=== PATIENT | male | born 1935 | race Caucasian/White ===

== ENCOUNTER → 2016-08-11 | Outpatient (CLI) | payer BC, MEDICARE ==
[2016-08-11 14:15] LABS: Basophils % (A) 0 %; CH 30.9; CHCM 33.1; Eosinophils # (A) 0.2 k/uL (0-0.7); Eosinophils % (A) 3 %; HCT 38.5 % (39.0-53.0); HDW 2.17; HGB 12.6 gm/dL (13.0-17.5); Luc % (Auto) 3; Lymphocytes # (A) 1.5 k/uL (1.0-4.8); Lymphocytes % (A) 19 %; MCH 30.6 pg (25.0-35.0); MCHC 32.7 g/dL (31.0-37.0); MCV 93.5 fL (80.0-100.0); Mean Platelet Volume 6.4; Monocytes # (A) 0.4 k/uL (0-1.0); Monocytes % (A) 4 %; Neutrophils # (A) 5.7 k/uL (1.3-7.7); Neutrophils % (A) 71 %; RBC 4.12 m/uL (4.30-5.90); RDW 12.8 % (11.5-15.5); WBC (Perox) 8.15
[2016-08-11 14:37] LABS: ALT 38 U/L (21-72); AST 28 U/L (17-59); Alkaline Phosphatase 57 U/L (38-126); Anion Gap 12 mmol/L; Blood Urea Nitrogen 43 mg/dL (9-20); C Reactive Protein 21.3 mg/L (<10.0); Calcium 9.2 mg/dL (8.4-10.2); Carbon Dioxide 30 mmol/L (22-30); Chloride 98 mmol/L (98-107); Glucose 71 mg/dL (74-99); Non-African American GFR(MDRD) 53 (>60 ml/min/1.73 sqM); Rheumatoid Factor, Qnt <9 IU/mL (<12); Sodium 140 mmol/L (137-145); Total Bilirubin 0.5 mg/dL (0.2-1.3); Total Protein 7.1 g/dL (6.3-8.2)
[2016-08-11 14:42] LABS: Potassium 3.6 mmol/L (3.5-5.1)
[2016-08-11 15:20] LABS: Vitamin B12 289 pg/mL
[2016-08-11 16:04] LABS: Erythrocyte Sedimentation Rate 28 mm/hr (0-15)
[2016-08-11 19:26] LABS: Treponemal Ab Non-Reactive (Non-Reactive)
[2016-08-11 19:42] LABS: Hemoglobin A1C 5.2 % (4.2-6.1)
[2016-08-11 20:08] LABS: ANA w/Reflex to Titer NEGATIVE (NEGATIVE)
== END | disposition home or self-care (01) ==
LOC: LABWHC1 13:35
PROVIDERS: ATTEND Family Medicine
DX: R41.3 Other amnesia (principal); E03.9 Hypothyroidism, unspecified; M06.9 Rheumatoid arthritis, unspecified; E11.9 Type 2 diabetes mellitus without complications
CPT/HCPCS: 36415; 80053; 82140; 82607; 83036; 84439; 84443; 85025; 85652; 86038; 86140; 86431; 86780

== ENCOUNTER → 2016-08-29 | Outpatient (CLI) | payer MEDICARE ==
[2016-08-29 10:31] LABS: Blood Urea Nitrogen 39 mg/dL (9-20); Non-African American GFR(MDRD) 59 (>60 ml/min/1.73 sqM)
--- NOTE | 2016-08-29 12:32 | MR ---
EXAMINATION TYPE: MR brain wo/w con DATE OF EXAM: 08/29/2016 11:57 AM COMPARISON: NONE HISTORY: Amnesia CONTRAST: Patient received 14 mL intravenous MultiHance gadolinium contrast. Multiplanar and multispin-echo imaging of the brain was performed . Pre and post contrast enhanced i mages are obtained. The ventricles, basal cisterns and sulci overlying the cerebral convexities are moderately enlarged. There is evidence of mild to moderate periventricular white matter ischemic demyelination. Remote deep white matter insults are also noted. No acute edema is seen on diffusion weighted imaging. There is no evidence for midline shift or mass effect. Acute intracranial hemorrhage or extra-axial collection is not evident. No enhancing lesions are seen. Chronic paranasal sinusitis. Mastoid air cells well aerated. IMPRESSION: Age-related atrophic and chronic small vessel ischemic change. No acute intracranial process at this time. No enhancing lesions are seen.
== END | disposition home or self-care (01) ==
LOC: RADMRIMAIN 10:01
PROVIDERS: ATTEND Family Medicine
DX: G31.9 Degenerative disease of nervous system, unspecified (principal); I67.82 Cerebral ischemia
CPT/HCPCS: 82565; 84520; 70553; A9577

== ENCOUNTER → 2017-03-27 | Outpatient (CLI) | payer MEDICARE ==
--- NOTE | 2017-03-27 18:31 | ECHOF ---
Referral Reason:I50.9 heart failure MEASUREMENTS -------- HEIGHT: 398.8 cm WEIGHT: 70.8 kg BP: RVIDd: 2.5 cm (< 3.3) IVSd: 1.2 cm (0.6 - 1.1) LVIDd: 4.2 cm (3.9 - 5.3) LVPWd: 1.2 cm (0.6 - 1.1) IVSs: 1.4 cm LVIDs: 3.2 cm LVPWs: 1.6 cm LA Diam: 4.1 cm (2.7 - 3.8) LAESV Index (A-L): 21.46 ml/m Ao Diam: 3.5 cm (2.0 - 3.7) AV Cusp: 1.6 cm (1.5 - 2.6) LA Diam: 4.0 cm (2.7 - 3.8) MV EXCURSION: 16.312 mm (> 18.000) MV EF SLOPE: 52 mm/s (70 - 150) EPSS: 1.2 cm MV E Alcon: 0.51 m/s MV DecT: 354 ms MV A Alcon: 1.01 m/s MV E/A Ratio: 0.50 RAP: 5.00 mmHg RVSP: 28.94 mmHg FINDINGS -------- Undetermined rhythm. This was a technically adequate study. The left ventricular size is normal. Left ventricular wall thickness is normal. Overall left ventricular systolic function is low-normal with, an EF between 50 - 55 %. The right ventricle is normal in size. Normal LA size by volume 22+/-6 ml/m2. The right atrial size is normal. There is mild aortic valve sclerosis. There is no evidence of aortic regurgitation. Mild mitral annular calcification present. Mild mitral regurgitation is present. Mild tricuspid regurgitation present. There is no evidence of pulmonary hypertension. The right ventricular systolic pressure, as measured by Doppler, is 28.94mmHg. There is no pulmonic regurgitation present. The aortic root size is normal. There is no pericardial effusion. CONCLUSIONS -------- 1. The left ventricular size is normal. 2. There is no pulmonic regurgitation present. 3. The aortic root size is normal. 4. There is no pericardial effusion. 5. Left ventricular wall thickness is normal. 6. Overall left ventricular systolic function is low-normal with, an EF between 50 - 55 %. 7. There is mild aortic valve sclerosis. 8. Mild mitral annular calcification present. 9. Mild mitral regurgitation is present. 10. Mild tricuspid regurgitation present. 11. There is no evidence of pulmonary hypertension. 12. The right ventricular systolic pressure, as measured by Doppler, is 28.94mmHg. SENIOR CONTROLS ANALYST: Bushra Seals RDCS
== END | disposition home or self-care (01) ==
LOC: RADECHMAIN 12:57
PROVIDERS: ATTEND Family Medicine
DX: I08.3 Combined rheumatic disorders of mitral, aortic and tricuspid valves (principal)
CPT/HCPCS: 93306